=== PATIENT | female | born 1945 | race Caucasian/White ===

== ENCOUNTER → 2016-10-02 16:48 | Outpatient (CLI) | payer MEDICARE, OTHER ==
[2015-03-04 09:27] VITALS: BMI 34.5
[~2016-10-02 16:48] MED LIST: BISOPROLOL-HCT1 EAC1 PO; COUMADIN4 MG PO; DULCOLAX STOOL100 MG PO; PRILOSEC20 MG PO
== END | disposition home or self-care (01) ==
LOC: D.MAMMO 11:30
DX: R92.8 Other abnormal and inconclusive findings on diagnostic imaging of breast (principal)

== ENCOUNTER → 2016-11-02 15:49 | Outpatient (CLI) | payer MEDICARE, OTHER ==
[2015-03-04 09:27] VITALS: BMI 34.5
== END | disposition home or self-care (01) ==
LOC: D.MAMMO 10-26 11:00
DX: R92.0 Mammographic microcalcification found on diagnostic imaging of breast (principal)

== ENCOUNTER → 2017-10-23 23:46 | Outpatient (CLI) | payer MEDICARE, OTHER ==
[2015-03-04 09:27] VITALS: BMI 34.5
== END | disposition home or self-care (01) ==
LOC: D.MAMMO 10:30
DX: Z12.31 Encounter for screening mammogram for malignant neoplasm of breast (principal)

== ENCOUNTER → 2018-10-14 10:03 | Outpatient (CLI) | payer MEDICARE, OTHER ==
[2015-03-04 09:27] VITALS: BMI 34.5
--- NOTE | 2018-10-17 14:57 | ST ---
PATIENT:AMBROSE ROBERT MEDICAL RECORD: [id number] SEX: F LOCATION:[facility] ORDER #: ADMISSION DATE: 10/14/18 AGE OF PATIENT: 73 REFERRING PHYSICIAN: INTERPRETING PHYSICIAN: JESSE JOYNER MD DATE OF SERVICE: 10/14/2018 Nuclear Stress Test INDICATION: Angina, hypertension, abnormal ECG. She was exercised on standard Lexiscan protocol with 32 mCi of sestamibi injected at peak stress. Rest images were done previously with 11 mCi. FINDINGS: Gated SPECT reveals preserved ejection fraction at 72% with good wall motion and thickening and brightening throughout all segments. SPECT imaging Cardiolite was used as myocardial fusion agent. There is homogeneous uptake throughout all segments at rest and stress with no evidence of inducible ischemia or previous infarction. OVERALL IMPRESSION: 1. This is a normal nuclear stress test with no evidence of inducible ischemia or previous infarction. 2. Gated SPECT reveals a preserved ejection fraction at 72%. In this patient with ongoing symptomatology, the current scan does not suggest the presence of hemodynamically significant coronary artery disease. Evaluate noncardiac etiology of chest pain. TRANSINT:[id number] Voice Confirmation ID: [id number] DOCUMENT ID: [id number] JESSE JOYNER MD at 1457 CC: CEDRIC LEWIS [id number] DICTATION DATE: 10/15/18 1014 [employer] MANAGER: 10/15/18 2239 [facility] CLI 10/14/18 [id number] [place] [address]
== END | disposition home or self-care (01) ==
LOC: D.HCCARDIO 10:00
PROVIDERS: ATTEND Internal Medicine Interventional Cardiology
DX: I20.9 Angina pectoris, unspecified (principal)